=== PATIENT | male | born 1985 | race Caucasian/White ===

== ENCOUNTER 2018-07-20 18:06 | Emergency (ER) | payer SELFPAY ==
--- NOTE | 2018-07-20 20:16 | ER ---
Nurse's Notes [facility] Name: Nam Suárez Age: 33 yrs Sex: Male : 1985 Arrival Date: 07/20/2018 Time: 18:10 Bed Waiting Private MD: None, None Diagnosis: Presentation: 07/20 20:15 Note pt told weekend receptionist they were leaving. jd3 ED Course: 18:10 Patient arrived in ED. rg4 18:11 None, None is Private Physician. dl4 20:15 None, None is Attending Physician. jd3 Administered Medications: No medications were administered Outcome: 20:16 Patient left the ED. jd3 Signatures: Julianne Sanders rg4 Jacob Saldivar RN RN jd3 Michel Boogie dl4
== END 2018-07-20 20:16 | disposition left against medical advice (07) ==
LOC: ER 18:06
DX: Z53.21 Procedure and treatment not carried out due to patient leaving prior to being seen by health care provider (principal)

== ENCOUNTER 2018-07-21 07:12 | Emergency (ER) | payer SELFPAY ==
[2018-07-21] MEDS ORDERED: LIDOCAINE 1% MPF 30 ML VIAL ONE (07:41)
--- NOTE | 2018-07-21 07:44 | ER ---
Nurse's Notes [facility] Name: Nam Suárez Age: 33 yrs Sex: Male : 1985 Arrival Date: 07/21/2018 Time: 07:13 Bed 5 Private MD: Diagnosis: Cutaneous abscess of back [any part, except buttock];Sebaceous cyst;Type 2 diabetes mellitus Presentation: 07/21 07:22 Presenting complaint: Patient states: i have a boil on my back and it really got bad tw2 yesterday, i have had these before. Transition of care: patient was not received from another setting of care. Onset of symptoms was July 21, 2018. Risk Assessment: Do you want to hurt yourself or someone else? Patient reports no desire to harm self or others. Initial Sepsis Screen: Does the patient meet any 2 criteria? No. Patient's initial sepsis screen is negative. Does the patient have a suspected source of infection? No. Patient's initial sepsis screen is negative. Care prior to arrival: None. 07:22 Method Of Arrival: Ambulatory tw2 07:22 Acuity: CAYLA 4 tw2 Historical: - Allergies: 07:22 No Known Drug Allergies; hb - PMHx: 07:22 Diabetes - NIDDM; PERIPHERAL NEUROPATHY; hb - Immunization history:: Adult Immunizations up to date. - Social history:: Smoking status: Patient/guardian denies using tobacco. - Ebola Screening: : Patient denies travel to an Ebola-affected area in the 21 days before illness onset. - Family history:: not pertinent. Screenin:23 Abuse screen: Denies threats or abuse. Denies injuries from another. Nutritional hb screening: No deficits noted. Tuberculosis screening: No symptoms or risk factors identified. Fall Risk None identified. Assessment: 07:24 General: Appears in no apparent distress. Behavior is calm, cooperative, appropriate tw2 for age. Pain: Complains of pain in right subscapular area and right mid back. Neuro: Level of Consciousness is awake, alert, obeys commands, Oriented to person, place, time, situation. Cardiovascular: Patient's skin is warm and dry. Respiratory: Airway is patent Respiratory effort is even, unlabored, Respiratory pattern is regular, symmetrical. GI: No signs and/or symptoms were reported involving the gastrointestinal system. : No signs and/or symptoms were reported regarding the genitourinary system. EENT: No signs and/or symptoms were reported regarding the EENT system. Derm: Abscess located on right subscapular area and right mid back is hot to touch, is red, is raised, Reports increased pain. 08:12 Reassessment: Patient appears in no apparent distress at this time. No changes from tw2 previously documented assessment. Patient and/or family updated on plan of care and expected duration. Pain level reassessed. Patient is alert, oriented x 3, equal unlabored respirations, skin warm/dry/pink. Vital Signs: 07:23 BP 114 / 59; Pulse 112; Resp 18; Temp 97.9(O); Pulse Ox 98% on R/A; Weight 90.26 kg tw2 (R); Height 5 ft. 8 in. (172.72 cm); Pain 8/10; 07:23 Body Mass Index 30.26 (90.26 kg, 172.72 cm) tw2 ED Course: 07:13 Patient arrived in ED. as 07:22 Muriel Castro RN is Primary Nurse. tw2 07:23 Triage completed. tw2 07:24 Floyd Castrejon MD is Attending Physician. alyson 07:24 Arm band placed on. tw2 07:24 Placed in gown. Bed in low position. Pulse ox on. NIBP on. tw2 07:44 Jozef Lemos MD is Referral Physician. alyson 08:11 No provider procedures requiring assistance completed. Patient did not have IV access tw2 during this emergency room visit. Administered Medications: 07:40 Drug: Bactrim (160 mg-800 mg (DS) 1 tablet Route: PO; tw2 08:12 Follow up: Response: No adverse reaction tw2 07:40 Drug: Doxycycline 200 mg Route: PO; tw2 08:12 Follow up: Response: No adverse reaction tw2 Point of Care Testing: Blood Glucose: 07:35 Blood Glucose: 276 mg/dL; tw2 Ranges: Outcome: 07:44 Discharge ordered by . alyson 08:11 Discharged to home ambulatory. tw2 08:11 Condition: stable 08:11 Discharge instructions given to patient, Instructed on discharge instructions, follow up and referral plans. no drinking with medication, no driving heavy equipment, medication usage, Demonstrated understanding of instructions, follow-up care, medications, Prescriptions given X 3. 08:16 Patient left the ED. tw2 Signatures: Floyd Castrejon MD MD cha Martinez, Amelia as Baxter, Heather, RN RN Muriel Ortega RN RN tw2
--- NOTE | 2018-07-21 07:45 | EDPHYS ---
Physician Documentation [facility] Name: Nam Suárez Age: 33 yrs Sex: Male : 1985 Arrival Date: 07/21/2018 Time: 07:13 Bed 5 Private MD: ED Physician Floyd Castrejon HPI: 07/21 07:36 This 33 yrs old Male presents to ER via Ambulatory with complaints of Boil. alyson 07:36 The patient presents with cellulitis of the right mid back and right subscapular area. alyson Description: confluent. Onset: The symptoms/episode began/occurred 3 day(s) ago. Possible cause(s): abscess, sebaceous cyst. Associated signs and symptoms: The patient has no apparent associated signs or symptoms. Modifying factors: the symptoms are alleviated by remaining still, the symptoms are aggravated by movement, pressure, squeezing the lesion and expressing the contents, touching. Severity of symptoms: At their worst the symptoms were mild, moderate, in the emergency department the symptoms are unchanged. The patient has not experienced similar symptoms in the past. Historical: - Allergies: 07: No Known Drug Allergies; hb - PMHx: 07:22 Diabetes - NIDDM; PERIPHERAL NEUROPATHY; hb - Immunization history:: Adult Immunizations up to date. - Social history:: Smoking status: Patient/guardian denies using tobacco. - Ebola Screening: : Patient denies travel to an Ebola-affected area in the 21 days before illness onset. - Family history:: not pertinent. ROS: 07:36 Constitutional: Negative for fever, chills, and weight loss, Eyes: Negative for injury, alyson pain, redness, and discharge, ENT: Negative for injury, pain, and discharge, Neck: Negative for injury, pain, and swelling, Cardiovascular: Negative for chest pain, palpitations, and edema, Respiratory: Negative for shortness of breath, cough, wheezing, and pleuritic chest pain, Abdomen/GI: Negative for abdominal pain, nausea, vomiting, diarrhea, and constipation, Back: Negative for injury and pain, : Negative for injury, bleeding, discharge, and swelling, MS/Extremity: Negative for injury and deformity, Neuro: Negative for headache, weakness, numbness, tingling, and seizure, Psych: Negative for depression, anxiety, suicide ideation, homicidal ideation, and hallucinations, Allergy/Immunology: Negative for hives, rash, and allergies, Endocrine: Negative for neck swelling, polydipsia, polyuria, polyphagia, and marked weight changes, Hematologic/Lymphatic: Negative for swollen nodes, abnormal bleeding, and unusual bruising. 07:36 Skin: Positive for swelling, of the back. Exam: 07:40 Constitutional: This is a well developed, well nourished patient who is awake, alert, alyson and in no acute distress. Head/Face: Normocephalic, atraumatic. Eyes: Pupils equal round and reactive to light, extra-ocular motions intact. Lids and lashes normal. Conjunctiva and sclera are non-icteric and not injected. Cornea within normal limits. Periorbital areas with no swelling, redness, or edema. ENT: Nares patent. No nasal discharge, no septal abnormalities noted. Tympanic membranes are normal and external auditory canals are clear. Oropharynx with no redness, swelling, or masses, exudates, or evidence of obstruction, uvula midline. Mucous membranes moist. Neck: Trachea midline, no thyromegaly or masses palpated, and no cervical lymphadenopathy. Supple, full range of motion without nuchal rigidity, or vertebral point tenderness. No Meningismus. Chest/axilla: Normal chest wall appearance and motion. Nontender with no deformity. No lesions are appreciated. Cardiovascular: Regular rate and rhythm with a normal S1 and S2. No gallops, murmurs, or rubs. Normal PMI, no JVD. No pulse deficits. Respiratory: Lungs have equal breath sounds bilaterally, clear to auscultation and percussion. No rales, rhonchi or wheezes noted. No increased work of breathing, no retractions or nasal flaring. Abdomen/GI: Soft, non-tender, with normal bowel sounds. No distension or tympany. No guarding or rebound. No evidence of tenderness throughout. Male : Normal genitalia with no discharge or lesions. MS/ Extremity: Pulses equal, no cyanosis. Neurovascular intact. Full, normal range of motion. Neuro: Awake and alert, GCS 15, oriented to person, place, time, and situation. Cranial nerves II-XII grossly intact. Motor strength 5/5 in all extremities. Sensory grossly intact. Cerebellar exam normal. Normal gait. Psych: Awake, alert, with orientation to person, place and time. Behavior, mood, and affect are within normal limits. 07:40 Back: pain, that is mild, ROM is normal, normal spinal alignment noted, CVA tenderness, is absent. 07:40 Skin: abscess, that is small, approximately 3 cm(s), of the right mid back, cellulitis, that is minimal, induration, that is moderate is noted. Vital Signs: 07:23 BP 114 / 59; Pulse 112; Resp 18; Temp 97.9(O); Pulse Ox 98% on R/A; Weight 90.26 kg tw2 (R); Height 5 ft. 8 in. (172.72 cm); Pain 8/10; 07:23 Body Mass Index 30.26 (90.26 kg, 172.72 cm) tw2 MDM: 07:25 Patient medically screened. [facility] 07:42 Data reviewed: vital signs, nurses notes, lab test result(s). [facility] 07/21 07:35 Order name: Blood Glucose Level; Complete Time: 07:36 [facility] Administered Medications: 07:40 Drug: Bactrim (160 mg-800 mg (DS) 1 tablet Route: PO; tw2 08:12 Follow up: Response: No adverse reaction tw2 07:40 Drug: Doxycycline 200 mg Route: PO; tw2 08:12 Follow up: Response: No adverse reaction tw2 Point of Care Testing: Blood Glucose: 07:35 Blood Glucose: 276 mg/dL; tw2 Ranges: Critical Glucose Levels:Adult <50 mg/dl or >400 mg/dl <40 mg/dl or >180 mg/dl Disposition: 07/21/18 07:44 Discharged to Home. Impression: Cutaneous abscess of back [any part, except buttock], Sebaceous cyst, Type 2 diabetes mellitus. - Condition is Stable. - Discharge Instructions: Skin Abscess, Type 2 Diabetes Mellitus, Diagnosis, Adult, Skin Abscess, [id number]. - Prescriptions for Tylenol- Codeine #3 300-30 mg Oral Tablet - take 2 tablets by ORAL route every 6 hours As needed; 24 tablet. Doxycycline Hyclate 100 mg Oral Tablet - take 1 tablet by ORAL route every 12 hours; 20 tablet. Bactrim DS 800- 160 mg Oral Tablet - take 1 tablet by ORAL route every 12 hours for 10 days; 20 tablet. - Medication Reconciliation Form, Thank You Letter, Antibiotic Education, Prescription Opioid Use, Work release form form. - Follow up: Private Physician; When: 2 - 3 days; Reason: Recheck today's complaints, Continuance of care, Re-evaluation by your physician. Follow up: Jozef Lemos MD; When: 2 - 3 days; Reason: Recheck today's complaints, Re-evaluation by your physician. - Problem is new. - Symptoms have improved. Signatures: Floyd Castrejon MD MD [facility] Melissa Swan RN RN Muriel Castro RN RN tw2 Corrections: (The following items were deleted from the chart) 07:44 07:44 07/21/2018 07:44 Discharged to Home. Impression: Cutaneous abscess of back [any alyson part, except buttock]; Sebaceous cyst; Type 2 diabetes mellitus. Condition is Stable. Forms are Medication Reconciliation Form, Thank You Letter, Antibiotic Education, Prescription Opioid Use. Follow up: Private Physician; When: 2 - 3 days; Reason: Recheck today's complaints, Continuance of care, Re-evaluation by your physician. Problem is new. Symptoms have improved. [facility] 08:16 07:44 07/21/2018 07:44 Discharged to Home. Impression: Cutaneous abscess of back [any tw2 part, except buttock]; Sebaceous cyst; Type 2 diabetes mellitus. Condition is Stable. Forms are Medication Reconciliation Form, Thank You Letter, Antibiotic Education, Prescription Opioid Use. Follow up: Private Physician; When: 2 - 3 days; Reason: Recheck today's complaints, Continuance of care, Re-evaluation by your physician. Follow up: Dr. Jozef Lemos; When: 2 - 3 days; Reason: Recheck today's complaints, Re-evaluation by your physician. Problem is new. Symptoms have improved. alyson
[2018-07-21] MEDS ORDERED: SMZ./TMP. 800/160 MG TABLET ONE (07:49)
[2018-07-21] MEDS ORDERED: DOXYCYCLINE 100 MG CAP PO ONE (07:49)
[2018-07-21 08:22] VITALS: BP 114/59; TEMP 97.9; O2SAT 98
== END 2018-07-21 08:16 | disposition home or self-care (01) ==
LOC: ER 07:12
DX: L03.312 Cellulitis of back [any part except buttock and flank] (principal); L72.3 Sebaceous cyst; E11.42 Type 2 diabetes mellitus with diabetic polyneuropathy
CPT/HCPCS: 82962; 99283

== ENCOUNTER 2019-01-05 16:17 | Emergency (ER) | payer SELFPAY ==
[2019-01-05 20:06] LABS: Absolute Lymphocytes (CBC) 2.2 K/uL (0.7-4.9); Basophils % 0.5 % (0-1.3); Hematocrit 47.4 % (39.6-49.0); Lymphocytes % 24.9 % (15.3-44.8); MPV 8.3 fL (7.6-11.3); RBC Red Blood Cell Count 5.29 M/uL (4.33-5.43)
[2019-01-05 20:07] LABS: Protime INR 0.98
--- NOTE | 2019-01-05 20:15 | RAD REPORT ---
EXAM DESCRIPTION: Alexys Single View01/05/2019 7:57 pm CLINICAL HISTORY: Chest pain COMPARISON: 2017 FINDINGS: The lungs appear clear of acute infiltrate. The heart is normal size IMPRESSION: No acute abnormalities displayed
[2019-01-05 20:20] LABS: ALT/SGPT 42 U/L (12-78); AST/SGOT 19 U/L (15-37); Albumin 3.9 g/dL (3.4-5.0); Alkaline Phosphatase 80 U/L (45-117); BUN Blood Urea Nitrogen 13 mg/dL (7-18); Bicarbonate 27 mmol/L (21-32); Bilirubin Direct < 0.1 mg/dL (0-0.2); Bilirubin Total 0.4 mg/dL (0.2-1.0); Glucose Level 377 mg/dL (74-106); Magnesium 1.9 mg/dL (1.8-2.4); NT PRO-BNP 13 pg/mL (<125); Potassium 3.9 mmol/L (3.5-5.1); Protein, Total 7.6 g/dL (6.4-8.2); Sodium Level 139 mmol/L (136-145); Troponin (Emerg Dept Use Only) < 0.02 ng/mL (0.0-0.045)
--- NOTE | 2019-01-05 20:20 | RAD REPORT ---
EXAM DESCRIPTION: CT - Head Brain Wo Cont - 01/05/2019 7:58 pm CLINICAL HISTORY: Headache COMPARISON: None. TECHNIQUE: Computed axial tomography of the head was obtained. IV contrast was not requested. All CT scans are performed using dose optimization technique as appropriate and may include automated exposure control or mA/KV adjustment according to patient size. FINDINGS: An intracranial bleed is not seen . The ventricles are normal in caliber. No extra-axial fluid collection is noted. Fluid within the sinuses/ mastoids is not seen. IMPRESSION: No acute intracranial abnormality is seen. If patient's symptoms persist MRI of the bra in would be recommended.
[2019-01-05] MEDS ORDERED: DIPHENHYDRAMINE 50 MG/ML VIAL ONE (20:48)
[2019-01-05] MEDS ORDERED: METOCLOPRAMIDE 10 MG/2mL INJ ONE (20:48)
[2019-01-05] MEDS ORDERED: NA CHLORIDE 0.9% 1,000 ML ONE (20:48)
--- NOTE | 2019-01-05 22:28 | ER ---
Nurse's Notes [facility] Name: Nam Suárez Age: 33 yrs Sex: Male : 1985 Arrival Date: 01/05/2019 Time: 16:18 Bed 9 Private MD: Diagnosis: Hyperglycemia, unspecified;Vertigo;Cellulitis of the scalp;Headache Presentation: 01/05 17:01 Presenting complaint: Patient states: "I've been having a lot of sharp pain and aj1 migraines and dizziness. I can't bend over without feeling like Im going to pass out. I have a lot of nerve pains because I have neuropathy, but when I got my hair cut yesterday they noticed there was a large lump on the back of my head" Reports that these symptoms have been going on for the past 8 months. Transition of care: patient was not received from another setting of care. Onset of symptoms was May 2018. Risk Assessment: Do you want to hurt yourself or someone else? Patient reports no desire to harm self or others. Initial Sepsis Screen: Does the patient meet any 2 criteria? HR > 90 bpm. No. Patient's initial sepsis screen is negative. Does the patient have a suspected source of infection? No. Patient's initial sepsis screen is negative. Care prior to arrival: None. 17:01 Method Of Arrival: Ambulatory aj1 17:01 Acuity: CAYLA 3 aj1 Triage Assessment: 17:04 Headache History: Denies prior headaches. General: Appears in no apparent distress. aj1 uncomfortable, Behavior is calm, cooperative, appropriate for age. Pain: Complains of pain in left parietal area and occipital area Pain currently is 5 out of 10 on a pain scale. Pain began 8 months ago Also complains of dizziness. Neuro: Level of Consciousness is awake, alert, obeys commands, Oriented to person, place, time, situation, Moves all extremities. Gait is steady, Speech is normal, Facial symmetry appears normal, Reports dizziness, headache photophobia. Cardiovascular: Patient's skin is warm and dry. Respiratory: Airway is patent Respiratory effort is even, unlabored, Respiratory pattern is regular, symmetrical. Historical: - Allergies: 17:04 No Known Allergies; aj1 - PMHx: 17:04 Diabetes - NIDDM; PERIPHERAL NEUROPATHY; aj1 - Immunization history:: Adult Immunizations unknown. - Ebola Screening: : Patient denies travel to an Ebola-affected area in the 21 days before illness onset. - Social history:: Smoking status: unknown. Screenin:24 Abuse screen: Denies threats or abuse. Nutritional screening: No deficits noted. bb Tuberculosis screening: No symptoms or risk factors identified. Fall Risk None identified. Assessment: 19:30 General: Appears in no apparent distress. Behavior is calm, cooperative, appropriate wh for age. Pain: Complains of pain in Chest pain and headache. 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 Cardiovascular: Heart tones S1 S2. Cardiovascular: Reports chest pain. Respiratory: Airway is patent Respiratory effort is even, unlabored, Respiratory pattern is regular, symmetrical. GI: Abdomen is flat, non-distended, Abd is soft and non tender X 4 quads. : No signs and/or symptoms were reported regarding the genitourinary system. EENT: No signs and/or symptoms were reported regarding the EENT system. Derm: Skin is intact, is healthy with good turgor, Skin is pink, warm \\T\\ dry. normal. Musculoskeletal: Range of motion: intact in all extremities. 20:50 Reassessment: Patient appears in no apparent distress at this time. No changes from previously documented assessment. Patient and/or family updated on plan of care and expected duration. Pain level reassessed. Patient is alert, oriented x 3, equal unlabored respirations, skin warm/dry/pink. 22:10 Reassessment: Patient appears in no apparent distress at this time. No changes from previously documented assessment. Patient and/or family updated on plan of care and expected duration. Pain level reassessed. Patient is alert, oriented x 3, equal unlabored respirations, skin warm/dry/pink. Vital Signs: 17:04 BP 126 / 82; Pulse 108; Resp 20; Temp 97.8; Pulse Ox 98% on R/A; Weight 92.53 kg (R); aj1 Height 5 ft. 8 in. (172.72 cm) (R); 21:00 BP 121 / 82; Pulse 97; Resp 18; Pulse Ox 99% ; wh 22:23 BP 121 / 85; Pulse 99; Resp 16 S; Pulse Ox 97% on R/A; bb 17:04 Body Mass Index 31.02 (92.53 kg, 172.72 cm) aj1 ED Course: 16:18 Patient arrived in ED. as 17:04 Triage completed. aj1 17:04 Arm band placed on Patient placed in waiting room, Patient notified of wait time. aj1 19:07 Ari Betancourt PA is PHCP. [facility] 19:07 Luis Hernandez MD is Attending Physician. [facility] 19:16 Tatum Goodman is Primary Nurse. 19:58 CT completed. Patient tolerated procedure well. Patient moved to CT. Patient moved back ma from CT. 20:00 XRAY Chest (1 view) In Process Unspecified. EDMS 20:03 CT Head Brain wo Cont In Process Unspecified. EDMS 20:20 Inserted saline lock: 22 gauge in right forearm, using aseptic technique. Blood wh collected. 22:24 No provider procedures requiring assistance completed. IV discontinued, intact, bb bleeding controlled, No redness/swelling at site. Pressure dressing applied. 22:25 Patient has correct armband on for positive identification. bb Administered Medications: 20:56 Drug: NS 0.9% 1000 ml Route: IV; Rate: 1 bolus; Site: right forearm; 22:28 Follow up: Response: No adverse reaction; IV Status: Completed infusion 20:56 Drug: Benadryl 12.5 mg {Note: Mixed in NS Bolus.} Route: IVP; Site: right forearm; 22:28 Follow up: Response: No adverse reaction 20:57 Drug: Reglan 10 mg {Note: MIxed in NS Bolus.} Route: IVP; Site: right forearm; 22:28 Follow up: Response: No adverse reaction Outcome: 22:15 Discharge ordered by . akil 22:24 Discharged to home ambulatory, with family. bb 22:24 Condition: stable 22:24 Discharge instructions given to patient, Instructed on discharge instructions, follow up and referral plans. medication usage, Demonstrated understanding of instructions, follow-up care, medications, Prescriptions given X 1. 22:26 Patient left the ED. bb Signatures: Dispatcher [employer] EDMS Tess Mcrae RN RN aj Ari Betancourt PA PA jmm Martinez, Amelia as Ballard, Brenda, RN RN Nate, Bin nj Habalo, Winsy wh
--- NOTE | 2019-01-05 22:28 | EDPHYS ---
Physician Documentation [facility] Name: Nam Suárez Age: 33 yrs Sex: Male : 1985 Arrival Date: 01/05/2019 Time: 16:18 Bed 9 Private MD: ED Physician Luis Hernandez HPI: 01/05 19:22 This 33 yrs old Male presents to ER via Ambulatory with complaints of jmm Headache, Dizziness, Back Pain. 19:22 The patient complains of pain to the left occipital area. The patient describes the jmm headache as aching. Onset: The symptoms/episode began/occurred gradually, 1.5 month(s) ago. Associated signs and symptoms: Pertinent positives: dizziness. This is a 33 year old male with a history of DM that presents to the ED with complaints of left sided headache which has been intermittent for the past month and a half. Patient states noticing scalp swelling after a recent hair cut. Denies fever. Patient states having chronic episodes of headaches but has worsened over the past month. Patient also complains of dizziness upon changes in position which has been ongoing for the same period of time. . Historical: - Allergies: 17:04 No Known Allergies; aj1 - PMHx: 17:04 Diabetes - NIDDM; PERIPHERAL NEUROPATHY; aj1 - Immunization history:: Adult Immunizations unknown. - Ebola Screening: : Patient denies travel to an Ebola-affected area in the 21 days before illness onset. - Social history:: Smoking status: unknown. ROS: 19:22 Constitutional: Negative for fever, chills, and weight loss. jmm 19:22 Neck: Negative for injury, pain, and swelling. 19:22 Back: Negative for injury and pain. 19:22 Cardiovascular: Positive for chest pain. 19:22 Abdomen/GI: Positive for vomiting, Negative for abdominal pain. 19:22 Skin: Positive for swelling. 19:22 Neuro: Positive for headache. 19:22 All other systems are negative. Exam: 19:22 Constitutional: This is a well developed, well nourished patient who is awake, alert, jmm and in no acute distress. 19:22 Eyes: EOMI, no conjunctival erythema appreciated Chest/axilla: Normal chest wall appearance and motion. Cardiovascular: Regular rate and rhythm. No edema appreciated Respiratory: Normal respirations, no respiratory distress appreciated Abdomen/GI: Non distended, soft Back: Normal ROM 19:22 Head/face: left occipital scalp swelling, mild erythema, no fluctuance appreciated. 19:22 Skin: mild erythema noted to the left occipital scalp. 19:22 Neuro: Orientation: is normal, Mentation: is normal, Memory: is normal. 19:22 Psych: Behavior/mood is pleasant, cooperative. 19:36 ECG was reviewed by the Attending Physician. [facility] Vital Signs: 17:04 BP 126 / 82; Pulse 108; Resp 20; Temp 97.8; Pulse Ox 98% on R/A; Weight 92.53 kg (R); aj1 Height 5 ft. 8 in. (172.72 cm) (R); 21:00 BP 121 / 82; Pulse 97; Resp 18; Pulse Ox 99% ; wh 22:23 BP 121 / 85; Pulse 99; Resp 16 S; Pulse Ox 97% on R/A; bb 17:04 Body Mass Index 31.02 (92.53 kg, 172.72 cm) aj1 MDM: 19:22 Patient medically screened. [facility] 22:09 Data reviewed: vital signs, nurses notes. Counseling: I had a detailed discussion with [facility] the patient and/or guardian regarding: the historical points, exam findings, and any diagnostic results supporting the discharge/admit diagnosis, lab results, radiology results, the need for outpatient follow up, to return to the emergency department if symptoms worsen or persist or if there are any questions or concerns that arise at home. ED course: Scalp appears to be clinically concerning for cellulitis. This may be exacerbating the patient's headaches. Headache relieved in the ED. Neck is supple, I do not suspect SAH or meningitis. Dizziness is positional. I do not suspect CVA. HEART SCORE = 1. Patient is advised to establish himself with PCP for blood glucose management. Patient was otherwise given strict return precautions. Patient and family understood and agrees with the plan of care. . 01/05 19:30 Order name: Basic Metabolic Panel; Complete Time: 20:23 [facility] 01/05 19:30 Order name: CBC with Diff; Complete Time: 20:23 [facility] 01/05 19:30 Order name: LFT's; Complete Time: 20:23 [facility] 01/05 19:30 Order name: Magnesium; Complete Time: 20:23 [facility] 01/05 19:30 Order name: NT PRO-BNP; Complete Time: 20:23 [facility] 01/05 19:30 Order name: PT-INR; Complete Time: 20:23 [facility] 01/05 19:30 Order name: Troponin (emerg Dept Use Only); Complete Time: 20:23 [facility] 01/05 19:30 Order name: XRAY Chest (1 view); Complete Time: 20:23 [facility] 01/05 19:30 Order name: EKG; Complete Time: 19:31 [facility] 01/05 19:30 Order name: Cardiac monitoring; Complete Time: 19:53 [facility] 01/05 19:30 Order name: CT Head Brain wo Cont; Complete Time: 20:33 [facility] 01/05 19:30 Order name: EKG - Nurse/Tech; Complete Time: 19:53 [facility] 01/05 19:30 Order name: IV Saline Lock; Complete Time: 19:53 [facility] 01/05 19:30 Order name: Labs collected and sent; Complete Time: 19:53 [facility] 01/05 19:30 Order name: O2 Per Protocol; Complete Time: 19:53 [facility] 01/05 19:30 Order name: O2 Sat Monitoring; Complete Time: 19:54 jmm EC:36 Rate is 86 beats/min. Rhythm is regular. QRS [place] is Normal. [place] interval is normal. QRS jmm interval is normal. QT interval is normal. No Q waves. T waves are Normal. No ST changes noted. Reviewed by me. Administered Medications: 20:56 Drug: NS 0.9% 1000 ml Route: IV; Rate: 1 bolus; Site: right forearm; 22:28 Follow up: Response: No adverse reaction; IV Status: Completed infusion 20:56 Drug: Benadryl 12.5 mg {Note: Mixed in NS Bolus.} Route: IVP; Site: right forearm; 22:28 Follow up: Response: No adverse reaction 20:57 Drug: Reglan 10 mg {Note: MIxed in NS Bolus.} Route: IVP; Site: right forearm; 22:28 Follow up: Response: No adverse reaction Disposition: 01/06 06:43 Co-signature as Attending Physician, Luis Hernandez MD. 06:43 Co-signature as Attending Physician, Luis Hernandez MD. Disposition: 01/05/19 22:15 Discharged to Home. Impression: Hyperglycemia, unspecified, Vertigo, Cellulitis of the scalp, Headache. - Condition is Stable. - Discharge Instructions: Benign Positional Vertigo, Cellulitis, Adult, General Headache Without Cause, Hyperglycemia, Hypomagnesemia, Blood Glucose Monitoring, Adult, Dung Maneuver Self-Care. - Prescriptions for Bactrim DS 800- 160 mg Oral Tablet - take 1 tablet by ORAL route every 12 hours for 10 days; 20 tablet. - Medication Reconciliation Form, Thank You Letter, Antibiotic Education, Prescription Opioid Use form. - Follow up: Private Physician; When: 2 - 3 days; Reason: Recheck today's complaints, Continuance of care, Re-evaluation by your physician. Signatures: Dispatcher [employer] EDTess Devries RN RN aj1 Ari Betancourt PA PA jmm Ballard, Brenda, RN RN [place] Gregory, MD MD gs Corrections: (The following items were deleted from the chart) 01/05 22:26 22:15 01/05/2019 22:15 Discharged to Home. Impression: Hyperglycemia, unspecified; bb Vertigo; Cellulitis of the scalp; Headache. Condition is Stable. Forms are Medication Reconciliation Form, Thank You Letter, Antibiotic Education, Prescription Opioid Use. Follow up: Private Physician; When: 2 - 3 days; Reason: Recheck today's complaints, Continuance of care, Re-evaluation by your physician. akil
[2019-01-06 00:55] VITALS: TEMP 97.8
[2019-01-06 00:56] VITALS: BP 121/85; O2SAT 97
--- NOTE | 2019-01-08 16:59 | EKG ---
Test Date: 2019-01-05 Test Time: 19:36:52 Methodologist: RHODA MEASUREMENT RESULTS: Intervals: Rate: 86 PA: 162 QRSD: 92 QT: 344 QTc: 411 [place]: P: 74 PA: 162 QRS: 85 T: 62 INTERPRETIVE STATEMENTS: Normal sinus rhythm Normal ECG Compared to ECG 10/11/2016 22:11:43 Sinus tachycardia no longer present Incomplete right bundle-branch block no longer present Electronically Signed On 01-08-19 16:55:46 CDT by Bashir Crowell
== END 2019-01-05 22:26 | disposition home or self-care (01) ==
LOC: ER 16:17
DX: R42 Dizziness and giddiness (principal); R73.9 Hyperglycemia, unspecified; L03.811 Cellulitis of head [any part, except face]; E11.9 Type 2 diabetes mellitus without complications
CPT/HCPCS: 36415; 70450; 71045; 80048; 80076; 83735; 83880; 84484; 85025; 85610; 93005; 96361; 96374; 96375; 99284; J2765; J7030